=== PATIENT | male | born 1995 ===

== ENCOUNTER 2020-07-07 14:54 | Outpatient (REF) | payer SELFPAY ==
[2020-07-07 21:32] LABS: Abs Immature Grans 0.09 10^3/uL (0.0-0.06); Absolute Basophil Count 0.05 10^3/uL (0.0-0.2); Absolute Eosinophil Count 0.18 10^3/uL (0.0-0.7); Absolute Monocyte Count 0.57 10^3/uL (0.1-0.8); Absolute Neutrophil Count 3.53 10^3/uL (1.2-6.7); Basophils % 0.8; Eosinophils % 2.8; HCT 43.8 % (40.0-50.0); HGB 14.9 g/dL (13.5-17.5); Immature Grans % 1.4; Lymphocytes % 32.2; MCH 28.7 pg (27.0-33.0); MCV 84.2 fL (80-95); MPV 9.8 fL (8.0-11.0); Monocytes % 8.7; Neutrophils % 54.1; Nucleated RBC 0 %; Platelet Count 336 10^3/uL (130-400); RDW 12.2 % (11.8-14.1); RDW-SD 36.9 fL; WBC 6.52 10^3/uL (4.4-10.8)
[2020-07-07 22:08] LABS: ESR 16 mm/hr (0-15)
[2020-07-09 10:04] LABS: HIV-1/2 Ag & Ab Screen Negative (Negative)
== END 2020-07-07 15:14 ==
LOC: NCHCN 14:54
PROVIDERS: Visit Provider Family Medicine
DX: R59.1 Generalized enlarged lymph nodes (principal); Z11.4 Encounter for screening for human immunodeficiency virus [HIV]
CPT/HCPCS: 85652; 87389; 85025